=== PATIENT | male | born 1960 | race Caucasian/White ===

== ENCOUNTER 2023-06-22 00:12 | Emergency (ER) | payer OTHER ==
[~2023-06-22] VITALS: Ht 182.9 cm; Wt 106.6 kg
[~2023-06-22 00:12] MED LIST: ACET325 PO; ALBU90OI INH; ANTOXYBENA BOTHEARS; Bactrim Ds Tab1 EACH PO; CEPH500 PO; CHOLESTEROL; CIPRO500 MG PO; CLIN300 PO; Cleocin HCl150 MG PO; Cleocin HCl300 MG PO; Colace100 MG PO; DOCU100 PO; GUAI120S1 PO; HTN; HYDACE5325 PO; HYDR1TAB94 PO; IBUP800 PO; LAVAP17G PO; METR500 PO; MINO100 PO; Norco 5-325 Ta1 EACH PO; PROC10 PO; PROM25 PO; Percocet 5-3251 EACH PO; Prednisone20 MG PO; SULTRIDS PO; Veetids 500500 MG PO; Zithromax250 MG PO; Zofran4 MG PO
[2023-06-22] MEDS ORDERED: NS 1,000 ML IV SCH (01:35)
[2023-06-22] MEDS ORDERED: Ondansetron HCl 2 MG / ML 2ML Vial IV ONE (01:35)
[2023-06-22] MEDS ORDERED: FentaNYL Citrate 50 MCG/ML 2 ML Injection IV ONE (01:35)
[2023-06-22] MEDS ORDERED: Ketorolac Tromethamine 30mg Vial IV ONE (01:35)
[2023-06-22 01:37] LABS: BASOPHILS ABSOLUTE AUTO 0.05 K/mm3 (0.00-0.23); BASOPHILS PERCENT AUTO 0 % (0-2); EOSINOPHILS ABSOLUTE AUTO 0.01 K/mm3 (0.00-0.68); EOSINOPHILS PERCENT AUTO 0 % (0-6); Hematocrit 46.2 % (37.0-53.0); Hemoglobin 15.8 g/dL (13.5-17.5); IMMATURE GRAN ABSOLUTE AUTO 0.06 K/mm3 (0.00-0.10); IMMATURE GRAN PERCENT AUTO 0 % (0-1); LYMPHOCYTES ABSOLUTE AUTO 0.73 K/mm3 (0.84-5.20); LYMPHOCYTES PERCENT AUTO 5 % (21-46); MONOCYTES ABSOLUTE AUTO 0.87 K/mm3 (0.16-1.47); MONOCYTES PERCENT AUTO 6 % (4-13); Mean Corpuscular HGB 31.9 pg (26.0-34.0); Mean Corpuscular HGB Conc 34.2 g/dL (31.5-36.5); Mean Corpuscular Volume 93 fL (80-100); Mean Platelet Volume 10.1 fL (9.1-12.4); NEUTROPHILS ABSOLUTE AUTO 12.47 K/mm3 (1.96-9.15); NEUTROPHILS PERCENT AUTO 88 % (41-73); Platelet Count 191 K/mm3 (150-400); RDW Coefficient Variation 13.2 % (11.7-14.2); RDW Standard Deviation 45.1 fL (35.1-46.3); Red Blood Cell Count 4.95 M/mm3 (4.30-5.90); White Blood Cell Count 14.19 K/mm3 (4.00-11.30)
[2023-06-22 01:54] LABS: Magnesium, Blood 2.1 mg/dL (1.6-2.4)
[2023-06-22 01:55] LABS: Alanine Aminotransfer (ALT/SGP 31 U/L (12-78); Albumin, Blood 3.7 g/dL (3.4-5.0); Alk Phos 71 U/L (50-136); Anion Gap 6 mmol/L (6-16); Aspartate Aminotrans (AST/SGOT 22 U/L (12-37); Bilirubin, Direct <0.1 mg/dL (0.0-0.3); Bilirubin, Indirect Unable to Calculate mg/dL (0.1-0.7); Bilirubin, Total 0.3 mg/dL (0.1-1.0); Blood Urea Nitrogen 19 mg/dL (8-24); Bun/Creatinine Ratio 17.4 (12.0-20.0); CO2, Blood 24 mmol/L (21-32); Calcium, Blood 8.8 mg/dL (8.5-10.1); Chloride, Blood 109 mmol/L (98-108); Creatinine, Blood 1.09 mg/dL (0.60-1.20); Globulin, Blood 3.7 g/dL (2.2-4.0); Glomerular Filtration Rate 77 (60-); Glucose, Blood 141 mg/dL (70-99); Potassium, Blood 4.1 mmol/L (3.5-5.5); Sodium, Blood 139 mmol/L (136-145); Total Protein, Blood 7.4 g/dL (6.4-8.2)
[2023-06-22] MEDS ORDERED: Morphine Sulfate 4 MG/1 ML Injection IV ONE (02:45)
[2023-06-22 03:36] LABS: Source, Urine Clean Catch
[2023-06-22 03:39] LABS: Bilirubin, Urine Neg (Neg); Blood, Urine 3+ (Neg); Glucose Qualitative, Urine Neg (Neg); Ketones, Urine Neg (Neg); Leukocyte Esterase, Urine Neg (Neg); Nitrite, Urine Neg (Neg); Protein, Urine Neg (Neg); Urobilinogen, Urine NORM (Normal)
[2023-06-22 03:53] LABS: Appearance, Urine Clear (Clear); Color, Urine Yellow (P-Yellow)
[2023-06-22 03:54] LABS: Bacteria Not Seen /hpf; Squamous Epithelial Cells Not Seen /hpf (Few); White Blood Cells, Urine Not Seen /hpf (0-5)
[2023-06-22] MEDS ORDERED: Percocet 5-3251 EACH PO (04:02)
[2023-06-22] MEDS ORDERED: ONDA4ODT MM (04:02)
[2023-06-22] MEDS ORDERED: RX Prepack 6 Tabs Oxycodone 5mg UD ONE (04:10)
[2023-06-22 04:15] VITALS: BP 118/94
== END 2023-06-22 04:26 | disposition home or self-care (01) ==
LOC: ER 00:12
PROVIDERS: Student in an Organized Health Care Education/Training Program
DX: N13.2 Hydronephrosis with renal and ureteral calculous obstruction (principal); I71.43 Infrarenal abdominal aortic aneurysm, without rupture; K76.9 Liver disease, unspecified; I10 Essential (primary) hypertension; E78.5 Hyperlipidemia, unspecified; F17.200 Nicotine dependence, unspecified, uncomplicated
CPT/HCPCS: 74177; 80048; 80076; 81001; 83690; 83735; 85025; 93005; 93010; 96361; 96374-59; 96375; 99284-25; A9270; J1885; J2270; J2405; J3010; J7030; Q9967

== ENCOUNTER → 2023-07-09 | Outpatient (CLI) | payer OTHER ==
[~2023-07-09] MED LIST changes: +ONDA4ODT MM
== END | disposition home or self-care (01) ==
LOC: LAB 10:50 → LAB SHORT 10:50
DX: R73.03 Prediabetes (principal)
CPT/HCPCS: 82043